=== PATIENT | female | born 2000 | race Caucasian/White ===

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

== ENCOUNTER 2025-05-30 16:09 | Inpatient (IN) | payer BC ==
[2025-05-30 16:20] LABS: APPEARANCE,URINE CLEAR; GLUCOSE,URINE NEGATIVE (NEGATIVE); OCCULT BLOOD,URINE TRACE-INTACT (NEGATIVE)
[2025-05-30] MEDS ORDERED: Butorphanol 1 MG/ML SDV IVPUSH PRN (16:25)
[2025-05-30] MEDS ORDERED: Carboprost Tromethamine 250 MCG/1 mL Vial IM PRN (16:25)
[2025-05-30] MEDS ORDERED: Sodium Chloride 0.9% 10 ML Syringe FLUSH PRN (16:25)
[2025-05-30] MEDS ORDERED: Sodium Chloride 0.9% 2.5 ML Syringe FLUSH PRN (16:25)
[2025-05-30] MEDS ORDERED: Water For Irrigation,Sterile 1,000 ML Container IRR PRN (16:25)
[2025-05-30] MEDS ORDERED: Ondansetron 4 MG/2 ML SDV IVPUSH PRN (16:25)
[2025-05-30] MEDS ORDERED: Oxytocin/0.9 % Sodium Chloride 30 UNIT/500 ML BAG IV SCH (16:30)
[2025-05-30 17:08] LABS: CREATININE,URINE RAND 135.2 mg/dL; PROTEIN CREATININE RATIO,URINE 0.9; PROTEIN,URINE RANDOM 121.7 mg/dL (<11.9)
[2025-05-30 17:49] LABS: MEAN PLATELET VOLUME 10.9 fL (9.4-12.3); NRBC ABSOLUTE 0.00 K/uL (0.00-0.02); NRBC PERCENT 0.0 /100WBC (0.0-0.2); PLATELET COUNT,PLT 233 K/uL (150-400); RED BLOOD CELL COUNT 3.69 M/uL (4.10-5.30); WHITE BLOOD CELL COUNT,WBC 10.41 K/uL (3.9-11.3)
[2025-05-30 18:14] LABS: A/G RATIO 0.6 (0.9-1.6); ALANINE AMINOTRANSFERASE,ALT 18.0 IU/L (14-63); ASPARTATE AMNIOTRANSFERASE,AST 25.0 IU/L (15-37); BILIRUBIN TOTAL 0.3 mg/dL (0.2-1.0); BLOOD UREA NITROGEN,BUN 6.0 mg/dL (7.0-18.0); CARBON DIOXIDE,CO2 20.7 mmol/L (21.0-32.0); CHLORIDE,CL 106.0 mmol/L (98-107); CREATININE 0.6 mg/dL (0.6-1.0); EST CRCL DRUG DOSING (CG) 147.1 mL/min; GLUCOSE RANDOM 84.0 mg/dL (74-106); POTASSIUM,K 4.0 mmol/L (3.5-5.1); PROTEIN TOTAL,TP 5.9 g/dL (6.4-8.2); SODIUM,NA 139.0 mmol/L (136-145)
[2025-05-30 18:18] LABS: ESTIMATED GFR 129.0 mL/min (>60)
[2025-05-30] MEDS ORDERED: Misoprostol 25 MCG (1/4 of 100 MCG) Tab VAG PRN (18:48)
[2025-05-30] MEDS ORDERED: Terbutaline 1 MG/ML SDV SUBCUT PRN (18:48)
[2025-05-30] MEDS: Oxytocin/0.9 % Sodium Chloride 30 UNIT/500 ML BAG IV SCH (19:10)
[2025-05-30] MEDS: Lactated Ringers 1,000 ML IV SCH (19:11)
[2025-05-30] MEDS ORDERED: Calcium Gluconate 10% 1 GM/10 ML SDV IV PRN (22:00)
[2025-05-30] MEDS ORDERED: Magnesium Sulfate 20 GM/500mL 20 GM/500 ML BAG IV SCH (22:00)
[2025-05-30] MEDS ORDERED: Labetalol 100 MG/20 ML MDV IVPUSH PRN (22:05)
[2025-05-30] MEDS: Ropivacaine HCl/PF 200 ML ONE (23:29)
[2025-05-31] MEDS ORDERED: Lanolin 100% Cream 7 GM Tube TOP PRN (04:09)
[2025-05-31 04:31] LABS: PH,UMBILICAL ARTERIAL 7.24 (7.18-7.38); PH,UMBILICAL VENOUS 7.32 (7.25-7.45)
[2025-05-31 06:49] LABS: BASOPHILS ABSOLUTE AUTO 0.02 K/uL (0.00-0.20); BASOPHILS PERCENT AUTO 0.1 % (0.0-1.0); EOSINOPHILS ABSOLUTE AUTO 0.01 K/uL (0.00-0.45); EOSINOPHILS PERCENT AUTO 0.1 % (0.0-6.0); IMMATURE GRAN ABSOLUTE AUTO 0.07 K/uL (0.00-0.05); IMMATURE GRAN PERCENT AUTO 0.4 % (0.0-0.4); LYMPHOCYTES ABSOLUTE AUTO 1.59 K/uL (1.00-4.80); LYMPHOCYTES PERCENT AUTO 8.9 % (24.0-44.0); MEAN PLATELET VOLUME 10.6 fL (9.4-12.3); MONOCYTES ABSOLUTE AUTO 0.74 K/uL (0.00-0.80); MONOCYTES PERCENT AUTO 4.1 % (0.0-8.0); NEUTROPHILS ABSOLUTE AUTO 15.50 K/uL (1.80-7.70); NEUTROPHILS PERCENT AUTO 86.4 % (41.0-71.0); NRBC ABSOLUTE 0.00 K/uL (0.00-0.02); NRBC PERCENT 0.0 /100WBC (0.0-0.2); PLATELET COUNT,PLT 226 K/uL (150-400); RED BLOOD CELL COUNT 3.43 M/uL (4.10-5.30); WHITE BLOOD CELL COUNT,WBC 17.93 K/uL (3.9-11.3)
[2025-05-31] MEDS: Benzocaine/Menthol 20%-0.5% Spray 78 GM Cannister TOP PRN (07:06)
[2025-05-31] MEDS: Witch Hazel Medicated Pads 40/Jar TOP PRN (07:06)
[2025-05-31] MEDS: dexmedeTOMIDine HCl 200 MCG/2 ML SDV ONE (07:47)
[2025-05-31] MEDS: Magnesium Sulfate 4 GM/100 mL 4 GM in Premix Bag 1 BAG IV ONE (09:14)
[2025-06-01 09:07] VITALS: BP 129/84; PULSE 72
== END 2025-06-01 11:45 | disposition home or self-care (01) | DRG 560 ==
LOC: MW.OBCHECK 16:09 → MW.OB 16:09 → MW.OBCHECK 17:05 → OBSVTOIN 05-31 03:37 → MW.OB 05-31 07:35
PROVIDERS: ADMIT Obstetrics & Gynecology; ATTEND Obstetrics & Gynecology
PROC: 10E0XZZ Delivery of Products of Conception, External Approach (ICD-10-PCS; principal; 2025-05-31)
PROC: 3E0R3BZ Introduction of Anesthetic Agent into Spinal Canal, Percutaneous Approach (ICD-10-PCS; 2025-05-31)
PROC: 0KQM0ZZ Repair Perineum Muscle, Open Approach (ICD-10-PCS; 2025-05-31)
DX: O14.04 Mild to moderate pre-eclampsia, complicating childbirth (principal); O99.214 Obesity complicating childbirth; E66.812 Obesity, class 2; O99.02 Anemia complicating childbirth; O70.1 Second degree perineal laceration during delivery; Z3A.37 37 weeks gestation of pregnancy; Z37.0 Single live birth; Z98.890 Other specified postprocedural states; Z67.91 Unspecified blood type, Rh negative
CPT/HCPCS: 01967; 36415; 51702; 59025; 59409; 76815; 76815-26; 80053; 81003; 82570; 82803; 84156; 85025; 85027; 85460; 86592; 86850; 86900; 86901; A9270-GY; J0665; J2371; J2590; J2791; J2795; J7120